=== PATIENT | female | born 1985 | race Caucasian/White ===

== ENCOUNTER 2020-01-27 13:54 | Outpatient (RCR) | payer OTHER, SELFPAY ==
[2020-01-13 11:13] VITALS: BP 107/66; PULSE 84
[2020-01-17 13:14] VITALS: BP 111/61; PULSE 91
[2020-01-20 09:55] VITALS: BP 106/59; PULSE 91
[2020-01-24 09:51] VITALS: BP 111/57; PULSE 91
--- NOTE | ~2020-01-27 | US_ITS ---
EXAMINATION: US OB BPP wo non-stress DATE: 01/27/2020 14:23 INDICATION: Gestational diabetes. Third trimester. TECHNIQUE: Real-time pelvic ultrasound was performed. The interpreting radiologist was not present fo r the study. COMPARISON: None. FINDINGS: There is a single living fetus in vertex presentation. The placenta is posterior. heart rate i s 122 beats per minute (bpm). Biophysical profile performed by the technologist: breathing (30 sec sustained breathing in 30 minutes): 2 out of 2 movement (3 gross body movements in 30 minutes): 2 out of 2 tone (one episode of pepnlqb-zknlzuahy-htflpvl limb movement): 2 out of 2 Amniotic fluid pocket (2 cm): 2 out of 2 Total score: 8 out of 8 IMPRESSION: 1. Single living fetus in vertex presentation with heart rate of 122 bpm. 2. Biophysical profile 8 out of 8. Reviewed, dictated and finalized at location A.
--- NOTE | ~2020-01-27 | US_ITS ---
EXAMINATION: US OB limited w BPP DATE: 01/13/2020 11:07 INDICATION: Gestational diabetes TECHNIQUE: Real-time pelvic ultrasound was performed. The interpreting radiologist was not present fo r the study. COMPARISON: None. FINDINGS: There is a single living fetus in vertex presentation. The placenta is posterior. heart rate i s 131 beats per minute (bpm). Normal amniotic fluid index measuring 14.6 cm (5th%-95%: 8.3-24.5 cm at 33 weeks estimated gestational age) . Biophysical profile performed by the technologist: breathing (30 sec sustained breathing in 30 minutes): 2 out of 2 movement (3 gross body movements in 30 minutes): 2 out of 2 tone (one episode of bbayypl-iiprdyhek-dcwicun limb movement): 2 out of 2 Amniotic fluid pocket (2 cm): 2 out of 2 Total score: 8 out of 8 IMPRESSION: 1. Single living fetus in vertex presentation with heart rate of 131 bpm. 2. Biophysical profile 8 out of 8. 3. Normal amniotic fluid index of 14.6 cm. Reviewed, dictated and finalized at location A.
--- NOTE | ~2020-01-27 | US_ITS ---
EXAMINATION: US OB BPP wo non-stress DATE: 01/17/2020 12:21 INDICATION: Gestational diabetes. Third trimester. TECHNIQUE: Real-time pelvic ultrasound was performed. COMPARISON: Ultrasound 01/13/2020 FINDINGS: There is a single living fetus in vertex presentation. The placenta is posterior. heart rate i s 139 beats per minute (bpm). Biophysical profile performed by the technologist: breathing (30 sec sustained breathing in 30 minutes): 2 out of 2 movement (3 gross body movements in 30 minutes): 2 out of 2 tone (one episode of wefhopa-hynjhxejt-dszvszs limb movement): 2 out of 2 Amniotic fluid pocket (2 cm): 2 out of 2 Total score: 8 out of 8 IMPRESSION: 1. Single living fetus in vertex presentation. 2. Biophysical profile 8 out of 8. Reviewed, dictated and finalized at location A.
--- NOTE | ~2020-01-27 | US_ITS ---
EXAMINATION: US OB BPP wo non-stress EXAM DATE: 01/20/2020 10:47 INDICATION: Gestational diabetes. 3rd trimester. TECHNIQUE: Pelvic obstetrical transabdominal sonogram was performed by a technologist. There are mu ltiple grayscale and Doppler images available for interpretation. Comparison is made to prior examina tion from 01/17/2020. FINDINGS: There is a single fetus identified in vertex presentation with a heart rate of 157 beats pe r minute. The placenta is located in the posterior position. There is no sonographic evidence of ret roplacental hemorrhage identified. BIOPHYSICAL PROFILE (performed by the technologist) breathing (30 sec sustained breathing in 30 minutes): 2 out of 2 movement (3 gross body movements in 30 minutes): 2 out of 2 tone (one episode of kgfxklw-xvekjwyue-bbkiexl limb movement): 2 out of 2 Amniotic fluid pocket (2 cm): 2 out of 2 Total score: 8 out of 8 IMPRESSION: 1. Single fetus with heart rate of 157 bpm. 2. Normal biophysical profile score of 8 out of 8. Reviewed, dictated and finalized at location B.
[2020-01-27 14:48] VITALS: BP 103/72; PULSE 93
== END 2020-03-31 10:08 | disposition home or self-care (01) ==
LOC: ANHOBOP 13:54
PROVIDERS: PCP Obstetrics & Gynecology; Visit Provider Obstetrics & Gynecology
DX: O24.419 Gestational diabetes mellitus in pregnancy, unspecified control (principal); Z3A.33 33 weeks gestation of pregnancy
CPT/HCPCS: 59025; 76815; 76819